=== PATIENT | male | born 1950 | race Caucasian/White ===

== ENCOUNTER → 2018-01-02 | Day surgery (SDC) | payer OTHER ==
[~2018-01-02] VITALS: Ht 185.4 cm; Wt 97.5 kg
[~2018-01-02] MED LIST: CETI-1 PO; CHLORHEXIDINE GLUCONATE 2 % 1 PACK (2 CLOTHS) TOPICAL PRN; CYCLOPENTOLATE HCL 1% OPHT SOLN 2 ML BTL ONE; FLURBIPROFEN 0.03% OPHT SOLN 2.5 ML BTL ONE; INSULIN HUMAN REGULAR 1,000 UNITS/10 ML VIAL SQ PRN; LACTATED RINGER'S 1000 ML IV PRN; LIDOCAINE HCL 1% PF 30 ML VIAL ONE; LIDOCAINE HCL 2% JELLY 5 ML SYRINGE LEFT EYE ONE; LIDOCAINE HCL 2% JELLY 5 ML SYRINGE ONE; METOPROLOL TARTRATE 25 MG TAB PO PRN; MOME17I EACH NARE; MULT-65 PO; PHENYLEPHRINE HCL 10% OPTH SOLN 5 ML BTL ONE; POVIDONE IODINE 5% (ANTISEPSIS KIT) 4 APPLICATIONS EACH NARE PRN; PROPARACAINE HCL 0.5% OPHT SOLN 15 ML BTL LEFT EYE ONE; PROPARACAINE HCL 0.5% OPHT SOLN 15 ML BTL ONE; SODIUM CHLORID 0.9% 500 ML IV PRN; TOBRAMYCIN/DEXAMETHASONE OPTH OINT 3.5 GM TUBE ONE; TROPICAMIDE 1% OPHT SOLN 15 ML BTL ONE; VITA100064 PO
[2018-01-02] MEDS: PHENYLEPHRINE HCL 10% OPTH SOLN 5 ML BTL LEFT EYE SCH ×4 (06:47→07:02)
[2018-01-02] MEDS: FLURBIPROFEN 0.03% OPHT SOLN 2.5 ML BTL LEFT EYE SCH ×4 (06:47→07:02)
[2018-01-02] MEDS: CYCLOPENTOLATE HCL 1% OPHT SOLN 2 ML BTL LEFT EYE SCH ×4 (06:47→07:02)
[2018-01-02] MEDS: TROPICAMIDE 1% OPHT SOLN 15 ML BTL LEFT EYE SCH ×4 (06:47→07:02)
[2018-01-02 08:24] VITALS: TEMP 97.7
[2018-01-02 08:41] VITALS: BP 151/65; PULSE 70; RESP 16; O2SAT 100
--- NOTE | 2018-01-02 11:04 | MP ---
cc: Robert Polo MD DATE OF OPERATION: 01/02/2018 [facility] #[id number] PREOPERATIVE DIAGNOSIS: Visually significant cataract, left eye. POSTOPERATIVE DIAGNOSIS: Visually significant cataract, left eye. OPERATION: Phacoemulsification with posterior chamber lens implantation, left eye. SURGEON: Robert Polo MD ANESTHESIA: Topical with MAC. COMPLICATIONS: None. PROCEDURE: After informed consent was obtained, the patient was brought into the operative suite and placed on appropriate monitors by the Anesthesia Service. The patient had been given dilating drops and topical lidocaine gel in the holding area. The patient's operative eye was then prepped and draped in the usual sterile fashion. A wire lid speculum was placed. Further 2% lidocaine was then dropped on the cornea prior to beginning the procedure. A paracentesis incision was made in the peripheral cornea with a 1 mm leatha keratome. The anterior chamber was filled with viscoelastic. The anterior chamber was then entered through a stepped, clear corneal incision using a sharp 3 mm leatha keratome. A circular tear capsulorrhexis was then made with a bent needle cystitome. Following hydrodissection of the lens nucleus with balance saline, phaco-emulsification of the nucleus was performed using a modified chopping technique. The remaining cortex was removed with irrigation/aspiration. The prior two procedures were both performed using the handpieces of the [employer] phaco unit. The capsular bag was then filled with viscoelastic. The intraocular lens was then injected into the capsular bag and positioned. The type of intraocular lens and its power can be found elsewhere in this chart. The remaining viscoelastic was then removed from the anterior chamber with the IA handpiece. The anterior chamber was reformed with balanced saline. The wound was then closed securely with stromal hydration. It was found to be watertight to an intraocular pressure of at least 30 mmHg by palpation. A small amount of balanced salt solution was then removed through the paracentesis site and the intraocular pressure at the end of the case was approximately 20 by palpation. All drapes were then removed. TobraDex ointment was then placed in the eye, which was closed beneath a semi-pressure patch dressing. The patient tolerated this procedure well and left the operating room awake and alert. The patient is to follow-up in my office in the morning. Robert MD YARED Tellez , 10:33 AM , 10:43 AM
== END | disposition home or self-care (01) ==
LOC: PHSDC 06:05 → EDSTATUS 08:00
PROVIDERS: ATTEND Optometrist Occupational Vision
DX: H25.12 Age-related nuclear cataract, left eye (principal)
CPT/HCPCS: 00142; 66984; J7040; V2632